=== PATIENT | male | born 1995 | race Native Hawaiian/Other Pacific Islander ===

== ENCOUNTER 2019-05-22 06:51 | Emergency (ER) | payer OTHER ==
[~2019-05-22] VITALS: Ht 193 cm; Wt 136.1 kg
[2019-05-22 07:21] VITALS: BP 149/80; TEMP 97.5
== END 2019-05-22 08:27 | disposition home or self-care (01) ==
LOC: ED 06:51
PROC: 0HQGXZZ Repair Left Hand Skin, External Approach (ICD-10-PCS; principal; 2019-05-22)
DX: S61.012A Laceration without foreign body of left thumb without damage to nail, initial encounter (principal); W23.0XXA Caught, crushed, jammed, or pinched between moving objects, initial encounter; Y92.69 Other specified industrial and construction area as the place of occurrence of the external cause
CPT/HCPCS: 90715; 96372; 99282; 99283